=== PATIENT | female | born 1965 | race Caucasian/White ===

== ENCOUNTER 2017-10-17 14:22 | Outpatient (CLI) | payer BC | END 2017-10-17 14:23 | disposition home or self-care (01) | LOC: BICULT 14:22 | PROVIDERS: ATTEND Internal Medicine Endocrinology, Diabetes & Metabolism | DX: E04.2 Nontoxic multinodular goiter (principal); E04.1 Nontoxic single thyroid nodule; Z98.890 Other specified postprocedural states | CPT/HCPCS: 76536 ==